=== PATIENT | female | born 1955 | race Two or more races ===

== ENCOUNTER 2024-12-28 07:00 | Day surgery (SDC) | payer OTHER ==
[2024-12-28] MEDS ORDERED: DIPHENHYDRAMINE HCL 50 MG/ML VIAL 1ML IV ONE (12:15)
[2024-12-28] MEDS ORDERED: MIDAZOLAM HCL 2 MG/2 ML VIAL IV ONE (12:15)
[2024-12-28] MEDS ORDERED: fentaNYL CITRATE 50 MCG/ML AMPUL IV PUSH ONE (12:15)
== END 2024-12-28 13:40 | disposition home or self-care (01) ==
LOC: CIR.AMB 07:00
PROVIDERS: ATTEND Internal Medicine
DX: C7A.1 Malignant poorly differentiated neuroendocrine tumors (principal); K31.7 Polyp of stomach and duodenum; K29.60 Other gastritis without bleeding